=== PATIENT | female | born 1980 | race African-American/Black ===

== ENCOUNTER 2020-07-03 17:32 | Emergency (ER) | payer SELFPAY ==
[~2020-07-03] VITALS: Ht 180.3 cm; Wt 70.0 kg
[2020-07-03] MEDS ORDERED: IBUPROFEN 600MG TABLET PO ONE (20:00)
[2020-07-03 21:08] VITALS: BP 111/72
== END 2020-07-03 21:09 | disposition home or self-care (01) ==
LOC: ER 17:32
DX: R51.9 Headache, unspecified (principal); R06.02 Shortness of breath; Z20.822 Contact with and (suspected) exposure to COVID-19
CPT/HCPCS: 71045; 81025; 82962; 87635; 93005; 99283; C9803